=== PATIENT | male | born 2000 ===

== ENCOUNTER 2024-08-16 22:39 | Emergency (ER) | payer SELFPAY ==
[~2024-08-16] VITALS: Ht 167.6 cm; Wt 81.7 kg
[2024-08-17] MEDS ORDERED: RX Prepack 6 Tabs Oxycodone 5mg UD ONE (00:45)
== END 2024-08-17 01:03 | disposition home or self-care (01) ==
LOC: ER 22:39
DX: S52.122A Displaced fracture of head of left radius, initial encounter for closed fracture (principal); S80.02XA Contusion of left knee, initial encounter; V18.4XXA Pedal cycle driver injured in noncollision transport accident in traffic accident, initial encounter
CPT/HCPCS: 29105; 73080; 99283-25